=== PATIENT | female | born 1970 | race Caucasian/White ===

== ENCOUNTER 2019-07-10 10:12 | Observation (INO) | payer OTHER ==
[~2019-07-10] VITALS: Ht 165.1 cm; Wt 111.7 kg
[2019-07-10] MEDS ORDERED: regadenoson 0.4mg/5ml syringe IV ONE (10:30)
[2019-07-10] MEDS ORDERED: magnesium 4gm in 100ml NS 100 ML IV PRN (10:30)
[2019-07-10] MEDS ORDERED: metoprolol tartrate 1mg/ml inj IV PRN (10:30)
[2019-07-10] MEDS ORDERED: magnesium 2GM in 50ml NS 50 ML IV PRN (10:30)
[2019-07-10] MEDS ORDERED: magnesium Cl slow-release 64mg tablet PO PRN (10:30)
[2019-07-10] MEDS ORDERED: bisacodyl 10mg suppository rectal RC PRN (10:30)
[2019-07-10] MEDS ORDERED: potassium CL 10mEq/100ml bag 100 ML IV PRN ×2 (10:30)
[2019-07-10] MEDS ORDERED: potassium Cl 20 mEq SR tablet PO PRN ×2 (10:30)
[2019-07-10] MEDS ORDERED: HYDROcodone/acetaminophen 10/325mg tab PO PRN (10:30)
[2019-07-10] MEDS ORDERED: nitroGLYCERIN 0.4mg SUBLingual tab SL PRN ×2 (10:30)
[2019-07-10] MEDS ORDERED: ondansetron/PF 4mg/2ml inj IV PRN (10:30)
[2019-07-10] MEDS ORDERED: morphine 2 MG/ML inj. syringe IV PRN ×2 (10:30)
[2019-07-10] MEDS ORDERED: metoclopramide 5 mg/ml inj IV PRN (10:30)
[2019-07-10] MEDS ORDERED: diphenhydrAMINE 50 mg/ml inj IV PRN (10:30)
[2019-07-10] MEDS ORDERED: HYDROcodone/acetaminophen 5mg/325mg tablet PO PRN (10:30)
[2019-07-10] MEDS ORDERED: mag hydrox/Alum hydrox/simeth 30ml oral suspension PO PRN (10:30)
[2019-07-10] MEDS ORDERED: aminophylline 250mg/10ml inj. IV PRN (10:30)
[2019-07-10] MEDS: K and/or MAG REPLACEMENT MC SCH (10:30)
[2019-07-10] MEDS ORDERED: magnesium hydroxide 30ml (MOM) UD suspension PO PRN (10:30)
[2019-07-10] MEDS ORDERED: acetaminophen 325mg tablet PO PRN (10:30)
[2019-07-10] MEDS ORDERED: diphenhydrAMINE 25mg capsule PO PRN (10:30)
--- NOTE | 2019-07-10 10:35 | NUR ---
Paged Dr. Abarca-pt arrived "Re: new admit Padma Sneed, is in room 308. just letting you know to place orders and see her. Thank you, Allison ROMAN [phone]"
[2019-07-10 11:00] VITALS: BP 114/72
[2019-07-10 11:00] LABS: BASOPHILS # (AUTO) 0.1 X10'3 (0-0.2); BASOPHILS % (AUTO) 1.2 % (0-1); EOSINOPHILS # (AUTO) 0.1 X10'3 (0-0.9); EOSINOPHILS % (AUTO) 1.4 % (0-6); HEMATOCRIT 40.4 % (35.0-45.0); HEMOGLOBIN 13.9 g/dl (12.0-16.0); LYMPHOCYTES # (AUTO) 1.3 X10'3 (1.1-4.8); LYMPHOCYTES % (AUTO) 27.5 % (21-51); MEAN CORPUSCULAR HEMOGLOBIN 32.6 PG (27.0-31.0); MEAN CORPUSCULAR HGB CONC 34.5 g/dL (33.0-36.5); MEAN CORPUSCULAR VOLUME 94.6 FL (78-98); MEAN PLATELET VOLUME 6.8 FL (7.4-10.4); MONOCYTES # (AUTO) 0.4 X10'3 (0-0.9); MONOCYTES % (AUTO) 7.7 % (2-12); NEUTROPHILS # (AUTO) 2.9 X10'3 (1.8-7.7); NEUTROPHILS % (AUTO) 62.2 % (42-75); PLATELET COUNT 304 X10'3 (140-440); RED BLOOD COUNT 4.27 X10'6 (4.20-5.60); RED CELL DISTRIBUTION WIDTH 12.7 % (11.5-14.5); WHITE BLOOD COUNT 4.7 X10'3 (4.5-11.0)
[2019-07-10] MEDS: normal saline 1000ml 1,000 ML IV SCH ×2 (11:00→20:24)
[2019-07-10 11:22] LABS: ALANINE AMINOTRANSFERASE 15 U/L (12-78); ALBUMIN 3.5 G/DL (3.4-5.0); ALKALINE PHOSPHATASE 72 IU/L (46-116); ANION GAP 9 (8-16); ASPARTATE AMINO TRANSFERASE 15 U/L (10-37); BILIRUBIN,TOTAL 0.3 MG/DL (0.1-1.0); BLOOD UREA NITROGEN 24 MG/DL (7-18); BUN/CREATININE RATIO 33.3 (6.6-38.0); CALCIUM 8.8 MG/DL (8.5-10.1); CHLORIDE 106 MMOL/L (99-107); CREATININE 0.72 MG/DL (0.40-0.90); GLUCOSE 96 MG/DL (70-104); HEMOGLOBIN A1C 5.7 % (4.5-6.2); PHOSPHORUS 4.3 MG/DL (2.3-4.5); POTASSIUM 4.4 MMOL/L (3.5-5.1); SODIUM 141 MMOL/L (135-145); eGFR 86 ML/MIN
[2019-07-10] MEDS: aspirin 325mg tablet PO SCH (12:31)
[2019-07-10 14:22] LABS: CLARITY,URINE CLEAR (Clear); COLOR,URINE STRAW (Yellow); GLUCOSE, URINE NEGATIVE (Neg); KETONES,URINE NEGATIVE (Neg); LEUKOCYTE ESTERASE ,URINE NEGATIVE (Neg); NITRITES, URINE NEGATIVE (Neg); OCCULT BLOOD,URINE NEGATIVE (Neg); PH,URINE 5.5 (4.8-8.0); PROTEIN,URINE NEGATIVE (Neg); UROBILINOGEN,URINE 0.2 E.U/dL (0.2-1.0)
[2019-07-10 14:26] LABS: UA COLLECTION TYPE NON-SPECIFIED
[2019-07-10 15:00] VITALS: BP 127/81
[2019-07-10 15:47] LABS: H PYLORI ANTIBODY NEGATIVE (Neg)
[2019-07-10] MEDS: acetaminophen 325mg tablet PO PRN ×2 (16:44→22:49)
[2019-07-10] MEDS ORDERED: LEVO137T24 PO (17:54)
[2019-07-10] MEDS ORDERED: LIOT5TAB10 PO (17:54)
[2019-07-10 18:00] VITALS: BP 127/75
--- NOTE | 2019-07-10 18:00 | NUR ---
Patient in room MED 308. I have received report from Allison ALCANTARA and had the opportunity to ask questions and assume patient care.
--- NOTE | 2019-07-10 18:30 | NUR ---
TYLENOL REASSESSMENT NOT PERFORMED ON PREVIOUS SHIFT, PT STATED TYLENOL WAS EFFECTIVE
[2019-07-10] MEDS ORDERED: temazepam 15mg capsule PO PRN (21:00)
[2019-07-10 22:00] VITALS: BP 116/75
[2019-07-11] VITALS (9 sets, daily range): BP systolic 111–136; BP diastolic 58–83
[2019-07-11 02:53] LABS: HEMOGLOBIN 13.6 g/dl (12.0-16.0); MEAN CORPUSCULAR HEMOGLOBIN 32.6 PG (27.0-31.0); MEAN CORPUSCULAR HGB CONC 34.1 g/dL (33.0-36.5); MEAN CORPUSCULAR VOLUME 95.8 FL (78-98); MEAN PLATELET VOLUME 6.9 FL (7.4-10.4); PLATELET COUNT 277 X10'3 (140-440); RED BLOOD COUNT 4.18 X10'6 (4.20-5.60); RED CELL DISTRIBUTION WIDTH 13.1 % (11.5-14.5); WHITE BLOOD COUNT 4.8 X10'3 (4.5-11.0)
[2019-07-11 03:11] LABS: ANION GAP 8 (8-16); BLOOD UREA NITROGEN 18 MG/DL (7-18); BUN/CREATININE RATIO 32.1 (6.6-38.0); CALCIUM 8.1 MG/DL (8.5-10.1); CHLORIDE 110 MMOL/L (99-107); CHOL/HDL RATIO 2.6 (0.00-4.99); CHOLESTEROL 187 MG/DL (0-200); CREATININE 0.56 MG/DL (0.40-0.90); GLUCOSE 93 MG/DL (70-104); HDL CHOLESTEROL 71 MG/DL (35-60); LDL CHOLESTEROL 104 MG/DL (50-100); MAGNESIUM 1.9 MG/DL (1.5-2.4); POTASSIUM 3.8 MMOL/L (3.5-5.1); SODIUM 143 MMOL/L (135-145); TOTAL CARBON DIOXIDE 25.2 MMOL/L (24-32); TRIGLYCERIDES 72 MG/DL (20-135); eGFR > 90 ML/MIN
[2019-07-11] MEDS: normal saline 1000ml 1,000 ML IV SCH (05:34)
--- NOTE | 2019-07-11 06:00 | NUR ---
Problems reprioritized. Patient report given, questions answered & plan of care reviewed with Luzma ALCANTARA.
[2019-07-11] MEDS ORDERED: TRAZ-251 PO (06:39)
--- NOTE | 2019-07-11 06:39 | NUR ---
Patient in room MED 308. I have received report from MARICRUZ Duarte and had the opportunity to ask questions and assume patient care.
--- NOTE | 2019-07-11 07:23 | NUR ---
PAGER ID: [phone] MESSAGE: 308. pt. Padma Lyons. can you please reconcile her medications for us. they only one she was really concerned about was her two thyroid medications. thank you. Susan [phone]
[2019-07-11] MEDS: aspirin 325mg tablet PO SCH (07:39)
[2019-07-11] MEDS ORDERED: enoxaparin 40mg/0.4ml syringe SUBCUT SCH (08:00)
[2019-07-11] MEDS: K and/or MAG REPLACEMENT MC SCH (08:00)
[2019-07-11] MEDS ORDERED: liothyronine sod 5mcg tablet PO SCH (08:33)
[2019-07-11] MEDS ORDERED: levoTHYROXINE 112mcg tablet PO SCH (08:35)
[2019-07-11] MEDS ORDERED: levoTHYROXINE 25mcg tablet PO SCH (08:35)
--- NOTE | 2019-07-11 11:37 | NUR ---
PAGER ID: [phone] MESSAGE: 308. pt. Padma Lyons. her jonah scan report is back. please advise. MARICRUZ Davis [phone]
--- NOTE | 2019-07-11 13:46 | NUR ---
Student documentation: I have reviewed and agree with all interventions, assessments performed and documented by KI Jewell.
--- NOTE | 2019-07-11 13:46 | NUR ---
pt. discharged from facility at 1325. pt. refused staff escort to her own personal car that is parked in our lot. pt. signed and understood all paperwork. pt. understands that she needs to make a f/u appointment with her PCP in one week. pt. had no new meds to call in. pt. IV was d/c intact. pt. left with all belongings.
[2019-07-11] MEDS ORDERED: traZODone 50mg tablet PO SCH (21:00)
[2019-07-12] MEDS ORDERED: non-formulary drug (Levothyroxine Sodium (Synthroid) 1 TAB) PO SCH (08:00)
== END 2019-07-11 13:20 | disposition home or self-care (01) ==
LOC: INTOOBSV 10:12 → MED 3N 10:12
PROVIDERS: ADMIT Family Medicine; ATTEND Family Medicine
DX: I20.9 Angina pectoris, unspecified (principal); E03.9 Hypothyroidism, unspecified; F43.9 Reaction to severe stress, unspecified; E06.3 Autoimmune thyroiditis; Z86.19 Personal history of other infectious and parasitic diseases; Z87.891 Personal history of nicotine dependence; Z79.899 Other long term (current) drug therapy; Z88.5 Allergy status to narcotic agent
CPT/HCPCS: 36415; 71045; 78452; 80048; 80053; 80061; 81003; 83036; 83735; 83880; 84100; 84443; 84484; 85025; 85027; 85610; 86677; 87081; 93005; 93017; 93306; 96372; A9500; G0378; J2785; J7030; GO378; J1650

== ENCOUNTER 2024-02-21 15:25 | Outpatient (CLI) | payer OTHER ==
[~2024-02-21 15:25] MED LIST: LEVO137T24 PO; LIOT5TAB10 PO; TRAZ-251 PO
== END 2024-02-21 23:59 | disposition home or self-care (01) ==
LOC: MRI 15:25
PROVIDERS: ATTEND Family Medicine
DX: S46.811A Strain of other muscles, fascia and tendons at shoulder and upper arm level, right arm, initial encounter (principal); M19.011 Primary osteoarthritis, right shoulder; M25.511 Pain in right shoulder; M89.311 Hypertrophy of bone, right shoulder; M24.9 Joint derangement, unspecified; X58.XXXA Exposure to other specified factors, initial encounter; Y93.89 Activity, other specified; Y92.89 Other specified places as the place of occurrence of the external cause; Y99.8 Other external cause status
CPT/HCPCS: 73221